=== PATIENT | female | born 1985 | race Caucasian/White ===

== ENCOUNTER 2018-11-07 16:15 | Emergency (ER) | payer OTHER ==
[~2018-11-07] VITALS: Ht 162.6 cm; Wt 86.2 kg
[2018-11-07 16:22] VITALS: BP_SYST 118; BP_SYST 18
--- NOTE | 2018-11-07 16:22 | NUR ---
Patient to ER bed 2 to gown for evaluation. Side rails up. Report given to ROBERT Peters.
--- NOTE | 2018-11-07 16:24 | NUR ---
Patient is awake, alert, and oriented x4. She reports that she was at work sitting at her desk when she suddenly felt dizzy. She reports a history of anxiety and takes prozac. No signs or symptoms of distress noted.
--- NOTE | 2018-11-07 16:37 | NUR ---
ER EDSON Diaz examining patient.
[2018-11-07] MEDS ORDERED: KETOROLAC TROMETHAMINE 30 MG VIAL IVP ONE (16:45)
[2018-11-07] MEDS ORDERED: NACL 0.9% 1,000 ML IV ONE (16:45)
--- NOTE | 2018-11-07 17:00 | NUR ---
2 Unsuccessful IV attempts made. ROBERT Daniel to attempt.
--- NOTE | 2018-11-07 17:00 | NUR ---
Darcy reyes in [facility] - 11/07/18 at 1701 by MARIANO 2 unsuccessful IV attempts made. ROBERT Daniel to attempt.
--- NOTE | 2018-11-07 17:09 | NUR ---
Patient refused IV and medication. EDSON Diaz is aware.
[2018-11-07 17:11] LABS: BASOPHILS # (AUTO) 0.1 K/uL (0.0-0.2); EOSINOPHILS # (AUTO) 0.1 K/uL (0.0-0.4); EOSINOPHILS % (AUTO) 1.1 % (0.0-4.0); HEMATOCRIT 39.4 % (36-48); HEMOGLOBIN 13.2 g/dL (12.0-16.0); LYMPHOCYTES # (AUTO) 2.4 K/uL (1.0-5.5); LYMPHOCYTES % (AUTO) 30.4 % (20.5-51.5); MEAN CORPUSCULAR HEMOGLOBIN 29 pg (27-31); MEAN CORPUSCULAR HGB CONC 33 % (32-36); MEAN CORPUSCULAR VOLUME 86 fL (79.0-98.0); MONOCYTES # (AUTO) 0.5 K/uL (0.0-1.0); MONOCYTES % (AUTO) 6.8 % (1.7-9.3); NEUTROPHILS # (AUTO) 4.8 K/uL (1.8-7.7); NEUTROPHILS % (AUTO) 60.7 % (40.0-70.0); PLATELET COUNT (AUTO) 268 K/uL (130-430); RED BLOOD CELL COUNT(AUTO) 4.58 MIL/uL (4.2-6.2); RED CELL DISTRIBUTION WIDTH 14.3 % (9.0-15.0); WHITE BLOOD COUNT (AUTO) 7.9 K/uL (4.8-10.8)
[2018-11-07] MEDS ORDERED: KETOROLAC TROMETHAMINE 30 MG VIAL IM ONE (17:15)
[2018-11-07 17:38] LABS: ALBUMIN 3.4 g/dL (3.4-4.8); CALCIUM 8.8 mg/dL (8.4-11.0); CREATININE 0.62 mg/dL (0.55-1.30); POTASSIUM 3.8 mmol/L (3.5-5.1); TOTAL BILIRUBIN 0.2 mg/dL (0.0-1.0)
[2018-11-07 17:58] VITALS: BP_SYST 107
--- NOTE | 2018-11-07 17:59 | NUR ---
Patient given written and verbal discharge instructions and verbalizes understanding. ER MD discussed with patient the results and treatment provided. Patient in stable condition. ID arm band removed. Rx of meclazine given. Patient educated on pain management and to follow up with PMD. Pain Scale 0/10. Opportunity for questions provided and answered. Medication side effect fact sheet provided.
== END 2018-11-07 17:58 | disposition home or self-care (01) ==
LOC: SED 16:15
DX: G44.209 Tension-type headache, unspecified, not intractable (principal); R42 Dizziness and giddiness; R20.2 Paresthesia of skin; F32.9 Major depressive disorder, single episode, unspecified
CPT/HCPCS: 36415; 80053; 81002; 81025; 85025; 99283; J1885